=== PATIENT | female | born 1995 | race Hispanic/Latino ===

== ENCOUNTER 2018-03-23 19:16 | Emergency (ER) | payer BC, MEDICAID, OTHER ==
[2018-03-23 20:30] LABS: BASOPHILS % (AUTO) 0.3 % (0.0-5.0); EOSINOPHILS % (AUTO) 0.2 % (0.0-8.0); HEMATOCRIT 40.1 % (36-48); LYMPHOCYTES % (AUTO) 14.3 % (21.0-51.0); MEAN CORPUSCULAR HEMOGLOBIN 30.9 pg (27.0-33.0); MEAN CORPUSCULAR HGB CONC 34.4 g/dL (32.0-36.0); MEAN CORPUSCULAR VOLUME 89.8 fL (79-99); NEUTROPHILS % (AUTO) 77.2 % (40.0-77.0); PLATELET COUNT (AUTO) 281 K/uL (130-400); RED BLOOD CELL COUNT(AUTO) 4.47 MIL/uL (4.00-5.50); RED CELL DISTRIBUTION WIDTH 12.8 % (11.0-15.5); WHITE BLOOD COUNT (AUTO) 8.3 K/uL (4.8-10.8)
[2018-03-23 20:49] LABS: INR 1.01 (0.85-1.15); PARTIAL THROMBOPLASTIN TIME 33.4 SEC (26.3-35.5); PROTHROMBIN TIME 10.6 SEC (9.6-11.6)
[2018-03-23 20:50] LABS: CREATININE 0.7 mg/dL (0.5-1.5); POTASSIUM 3.8 mmol/L (3.5-5.1)
[2018-03-23 20:52] LABS: BILIRUBIN,URINE Negative (NEGATIVE); COLOR,URINE Yellow (YELLOW); GLUCOSE, URINE (UA) Negative (NEGATIVE); KETONES,URINE Negative (NEGATIVE); LEUKOCYTE ESTERASE ,URINE Negative (NEGATIVE); NITRATE,URINE Negative (NEGATIVE); OCCULT BLOOD,URINE Large (NEGATIVE); PH,URINE 7.5 (5.0-8.0); PROTEIN,URINE Negative (NEGATIVE); UROBILINOGEN,URINE 0.2 mg/dL (0.2-1.0)
[2018-03-23 20:54] LABS: HCG,QUAL RESULT NEGATIVE (NEGATIVE)
[2018-03-23 20:55] LABS: APPEARANCE,URINE Cloudy (CLEAR)
[2018-03-23 20:55] LABS: ALBUMIN 4.1 g/dL (3.5-5.0); BILIRUBIN,TOTAL 0.2 mg/dL (0.2-1.0); TOTAL PROTEIN, SERUM 7.9 g/dL (6.0-8.3)
[2018-03-23 21:02] LABS: BACTERIA,URINE Few /HPF (None Seen); RBC,URINE 0-1 /HPF (0-1); WBC,URINE 0-1 /HPF (0-1)
[2018-03-23 21:03] LABS: SQUAMOUS EPITHELIAL CELL,UR 0-2 /HPF (0-2); TRANSITIONAL EPI CELLS,URINE Few /HPF (None Seen)
[2018-03-23] MEDS ORDERED: IPRATROPIUM/ALBUTEROL SULFATE 3 ML SOLUTION IH ONE (21:21)
[2018-03-23] MEDS ORDERED: IOPAMIDOL-370 100 ML VIAL IV ONE (21:57)
== END 2018-03-23 23:40 | disposition home or self-care (01) ==
LOC: EDH 19:16
DX: J98.01 Acute bronchospasm (principal); R42 Dizziness and giddiness; Z98.890 Other specified postprocedural states; Z87.891 Personal history of nicotine dependence
CPT/HCPCS: 36415; 70450; 71045; 71275; 80053; 81001; 81025; 82550; 83605; 83690; 84484; 84703; 85025; 85378; 85610; 85730; 87804 ×2; 93005; 94640; 96360; 99285; Q9967

== ENCOUNTER 2021-03-01 20:23 | Emergency (ER) | payer BC, MEDICAID ==
[2021-03-01] MEDS ORDERED: DEXAMETHASONE SOD PHOSPHATE 10MG/ML 1ML VIAL ONE (20:49)
[2021-03-01] MEDS ORDERED: FAMOTIDINE 20MG TAB 20 MG TAB ONE (20:49)
[2021-03-01] MEDS ORDERED: DIPHENHYDRAMINE HCL 25 MG CAPSULE ONE (20:50)
== END 2021-03-01 21:43 | disposition home or self-care (01) ==
LOC: EDH 20:23
DX: T78.49XA Other allergy, initial encounter (principal); T50.B95A Adverse effect of other viral vaccines, initial encounter; Y92.89 Other specified places as the place of occurrence of the external cause
CPT/HCPCS: 96372; 99284; J1100; Q0163

== ENCOUNTER 2021-03-04 13:38 | Emergency (ER) | payer BC, MEDICAID ==
[2021-03-04 14:14] LABS: APPEARANCE,URINE Clear (CLEAR); BILIRUBIN,URINE Negative (NEGATIVE); COLOR,URINE Yellow (YELLOW); GLUCOSE, URINE (UA) Negative (NEGATIVE); KETONES,URINE Negative (NEGATIVE); LEUKOCYTE ESTERASE ,URINE Negative (NEGATIVE); NITRATE,URINE Negative (NEGATIVE); OCCULT BLOOD,URINE Trace (NEGATIVE); PH,URINE 6.5 (5.0-8.0); PROTEIN,URINE Negative (NEGATIVE); UROBILINOGEN,URINE 0.2 mg/dL (0.2-1.0)
[2021-03-04 14:32] LABS: BACTERIA,URINE Rare /HPF (None Seen); MUCUS,URINE Few LPF (None Seen); RBC,URINE 0-1 /HPF (0-1); SQUAMOUS EPITHELIAL CELL,UR Few /HPF (0-2); WBC,URINE 0-1 /HPF (0-1)
[2021-03-04 14:37] LABS: BASOPHILS % (AUTO) 0.5 % (0.0-5.0); EOSINOPHILS % (AUTO) 0.5 % (0.0-8.0); HEMATOCRIT 43.6 % (36-48); LYMPHOCYTES % (AUTO) 22.9 % (21.0-51.0); MEAN CORPUSCULAR HEMOGLOBIN 29.9 pg (27.0-33.0); MEAN CORPUSCULAR HGB CONC 33.5 g/dL (32.0-36.0); MEAN CORPUSCULAR VOLUME 89.3 fL (79-99); MONOCYTES % (AUTO) 8.4 % (3.0-13.0); NEUTROPHILS % (AUTO) 67.2 % (40.0-77.0); PLATELET COUNT (AUTO) 291 K/uL (130-400); RED BLOOD CELL COUNT(AUTO) 4.88 MIL/uL (4.00-5.50); RED CELL DISTRIBUTION WIDTH 12.5 % (11.0-15.5); WHITE BLOOD COUNT (AUTO) 8.1 K/uL (4.8-10.8)
[2021-03-04 14:52] LABS: CREATININE 0.9 mg/dL (0.5-1.5); POTASSIUM 3.7 mmol/L (3.5-5.1)
[2021-03-04 14:56] LABS: BILIRUBIN,TOTAL 0.3 mg/dL (0.2-1.0); TOTAL PROTEIN, SERUM 7.8 g/dL (6.0-8.3)
== END 2021-03-04 15:28 | disposition home or self-care (01) ==
LOC: EDH 13:38
DX: F41.1 Generalized anxiety disorder (principal); T50.B95A Adverse effect of other viral vaccines, initial encounter; H53.8 Other visual disturbances; R09.89 Other specified symptoms and signs involving the circulatory and respiratory systems; Y92.89 Other specified places as the place of occurrence of the external cause
CPT/HCPCS: 36415; 80053; 81001; 85025; 93005

== ENCOUNTER 2021-05-14 17:08 | Emergency (ER) | payer BC, MEDICAID ==
[~2021-05-14] VITALS: Ht 154.9 cm; Wt 74.8 kg
[2021-05-14 17:10] VITALS: BP 132/64
== END 2021-05-14 17:10 | disposition home or self-care (01) ==
LOC: EDH 17:08
DX: H53.142 Visual discomfort, left eye (principal)
CPT/HCPCS: 99281

== ENCOUNTER 2021-10-13 14:45 | Emergency (ER) | payer BC, MEDICAID ==
[~2021-10-13] VITALS: Ht 157.5 cm; Wt 77.6 kg
[2021-10-13] MEDS ORDERED: SOLU-MEDROL 125MG VIAL IM ONE (15:30)
[2021-10-13] MEDS ORDERED: FAMOTIDINE 20MG VIAL IV ONE (15:30)
[2021-10-13] MEDS ORDERED: DIPHENHYDRAMINE HCL 25 MG CAPSULE PO ONE (15:30)
[2021-10-13 16:28] VITALS: BP 122/55
[2021-10-13] MEDS ORDERED: FAMO-136 PO (16:40)
[2021-10-13] MEDS ORDERED: CETI1SOL17 PO (16:40)
[2021-10-13] MEDS ORDERED: PRED20TA3 PO (16:40)
== END 2021-10-13 17:08 | disposition home or self-care (01) ==
LOC: EDH 14:45
DX: L50.9 Urticaria, unspecified (principal); F41.9 Anxiety disorder, unspecified; Z79.52 Long term (current) use of systemic steroids
CPT/HCPCS: 96372; 96374; 99284; J2930; J3490; Q0163

== ENCOUNTER 2023-11-03 19:07 | Emergency (ER) | payer BC, MEDICAID, OTHER ==
[~2023-11-03] VITALS: Ht 157.5 cm; Wt 60.8 kg
[~2023-11-03 19:07] MED LIST: CETI1SOL17 PO; FAMO-136 PO; PRED20TA3 PO
[2023-11-03 20:24] LABS: HCG,QUALITATIVE URINE NEGATIVE (NEGATIVE)
[2023-11-03 20:32] LABS: APPEARANCE,URINE CLEAR (CLEAR); BILIRUBIN,URINE NEGATIVE (NEGATIVE); COLOR,URINE LIGHT-YELLOW (YELLOW); GLUCOSE, URINE (UA) NEGATIVE (NEGATIVE); KETONES,URINE NEGATIVE (NEGATIVE); LEUKOCYTE ESTERASE ,URINE NEGATIVE Leu/uL (NEGATIVE); NITRATE,URINE NEGATIVE (NEGATIVE); OCCULT BLOOD,URINE SMALL (NEGATIVE); PH,URINE 5.5 (5.0-8.0); PROTEIN,URINE NEGATIVE (NEGATIVE); UROBILINOGEN,URINE 0.2 mg/dL (0.2-1.0)
[2023-11-03 20:43] LABS: ADD UA MICROSCOPIC YES; BACTERIA,URINE FEW /HPF (None Seen); MUCUS,URINE RARE LPF (None Seen); OTHER CASTS, URINE 1 /LPF (None Seen); SQUAMOUS EPITHELIAL CELL,UR FEW /HPF (0-2); WBC,URINE 0-1 /HPF (0-1)
[2023-11-03] MEDS ORDERED: KETOROLAC 30MG VIAL (30MG/ML) IM SCH (21:00)
[2023-11-03 21:45] VITALS: BP 126/71; PULSE 75; RESP 16; O2SAT 100
== END 2023-11-03 21:47 | disposition home or self-care (01) ==
LOC: EDH 19:07
DX: U07.1 COVID-19 (principal); R07.81 Pleurodynia; R10.9 Unspecified abdominal pain; Z88.0 Allergy status to penicillin; Z88.1 Allergy status to other antibiotic agents
CPT/HCPCS: 99284; 71045; 81001; 81025; 96372; J1885

== ENCOUNTER 2023-11-08 17:02 | Emergency (ER) | payer BC, OTHER ==
[~2023-11-08] VITALS: Ht 160 cm; Wt 60.8 kg
[2023-11-08 17:06] VITALS: BP 115/71; PULSE 75; RESP 17
== END 2023-11-08 18:32 | disposition home or self-care (01) ==
LOC: EDH 17:02
DX: F41.9 Anxiety disorder, unspecified (principal)
CPT/HCPCS: 93971